=== PATIENT | female | born 1995 | race Caucasian/White ===

== ENCOUNTER 2019-06-16 23:03 | Emergency (ER) | payer SELFPAY ==
[~2019-06-16] VITALS: Ht 157.5 cm; Wt 79.4 kg
[2019-06-16 23:08] VITALS: BP 119/78
--- NOTE | 2019-06-16 23:11 | NUR ---
PT AMBULATED TO BED 9. PROVIDING URINE.
--- NOTE | 2019-06-16 23:16 | NUR ---
Dr. Estrada examining patient.
[2019-06-16] MEDS ORDERED: SULFAMETH/TRIMETH DS 800/160MG 1 TAB PO ONE (23:20)
[2019-06-16] MEDS ORDERED: IBUPROFEN 800 MG TAB PO ONE (23:20)
[2019-06-16] MEDS ORDERED: PHENAZOPYRIDINE 100 MG TAB PO ONE (23:20)
--- NOTE | 2019-06-16 23:21 | NUR ---
24/F PRESENTS TO ED, C/O BURNING WITH URINATION AND SUPRAPUBIC PAIN, X1 DAY INTERMITTENTLY. PT DENIES FEVER, N/V/D, CONSTIPATION. PT AWAKE AND ALERT, SKIN NORMAL WARM AND DRY, RR EVEN AND UNLABORED. HX CHOLELITHIASIS
[2019-06-16 23:47] VITALS: BP 119/78
--- NOTE | 2019-06-16 23:47 | NUR ---
Patient discharged with v/s stable. Written and verbal after care instructions given and explained. Patient alert, oriented and verbalized understanding of instructions. Ambulatory with to car. All questions addressed prior to discharge. ID band removed. Patient advised to follow up with PMD. Rx of motrin, pyridium, and bactrim was given. Patient educated on indication of medication including possible reaction and side effects. Opportunity to ask questions provided and answered.
== END 2019-06-16 23:47 | disposition home or self-care (01) ==
LOC: MED 23:03
DX: N30.91 Cystitis, unspecified with hematuria (principal)
CPT/HCPCS: 81002; 81025; 99284

== ENCOUNTER 2021-03-23 11:11 | Emergency (ER) | payer SELFPAY ==
[~2021-03-23] VITALS: Ht 157.5 cm; Wt 79.4 kg
--- NOTE | 2021-03-23 11:14 | NUR ---
Patient ambulated to bed 6. RN evaluating the patient at bedside.
[2021-03-23 11:17] VITALS: BP 151/70
--- NOTE | 2021-03-23 11:18 | NUR ---
Patient ambulated to restroom for urine sample.
--- NOTE | 2021-03-23 11:27 | NUR ---
Dr. Santos is evaluating patient at bedside.
[2021-03-23] MEDS ORDERED: ONDANSETRON 4 MG ODT PO ONE (11:30)
--- NOTE | 2021-03-23 11:35 | NUR ---
26 y/o F brought in from home with c/c abdominal pain + N/V x 1 hour. Patient reports acute onset of abdominal pain that she reports is 8/10, burning/aching/constant, radiating to her middle back. Patient also reports associated weakness. States history of gallstones x 3 years ago and symptoms feel similar. Patient denies any recent Covid vaccinations; reports taking Tylenol 500mg without relief. Patient denies diarrhea, constipation, dizziness, SOB, chest pain, cough, fever/chills. Pt placed into a gown. Bed locked in lowest position, side rails x 1, call light in reach. PMH: Gallstones Meds/Sx: Denies NKA
--- NOTE | 2021-03-23 11:35 | NUR ---
Lab at bedside.
[2021-03-23 11:47] LABS: BASOPHILS % (AUTO) 0.6 % (0.0-2.0); EOSINOPHILS # (AUTO) 0.1 K/uL (0-0.4); EOSINOPHILS % (AUTO) 2.2 % (0.0-4.0); HEMOGLOBIN 12.3 g/dL (12.0-16.0); LYMPHOCYTES # (AUTO) 1.8 K/uL (2.5-16.5); LYMPHOCYTES % (AUTO) 26.9 % (20.5-51.1); MEAN CORPUSCULAR HEMOGLOBIN 29 pg (27-31); MEAN CORPUSCULAR HGB CONC 33 g/dL (33-37); MEAN CORPUSCULAR VOLUME 85.6 fL (80-94); MONOCYTES # (AUTO) 0.4 K/uL (0.8-1.0); MONOCYTES % (AUTO) 5.8 % (1.7-9.3); NEUTROPHILS # (AUTO) 4.3 K/uL (1.8-7.7); NEUTROPHILS % (AUTO) 64.5 % (42.2-75.2); PLATELET COUNT (AUTO) 297 K/uL (140-450); RED BLOOD CELL COUNT(AUTO) 4.32 MIL/uL (4.20-5.40); RED CELL DISTRIBUTION WIDTH 13.4 % (11.6-13.7); WHITE BLOOD COUNT (AUTO) 6.6 K/uL (4.8-10.8)
--- NOTE | 2021-03-23 11:54 | NUR ---
Patient reports positive relief; no nausea at this time. Patient requesting pain medication. Dr. Santos made aware.
[2021-03-23] MEDS ORDERED: KETOROLAC 30 MG/ML VIAL IM ONE (12:00)
[2021-03-23] MEDS ORDERED: MORPHINE SULFATE 2 MG/ML SYR IM ONE (12:00)
[2021-03-23 12:04] LABS: ANION GAP 11.9 (8-16); CARBON DIOXIDE 29.5 mmol/L (21-32); CREATININE 0.7 mg/dL (0.6-1.3); POTASSIUM 3.4 mmol/L (3.5-5.1); TOTAL BILIRUBIN 0.4 mg/dL (0.0-1.0)
--- NOTE | 2021-03-23 12:19 | NUR ---
DR FERRARO AT BEDSIDE RE-EVALUATING PATIENT
[2021-03-23] MEDS ORDERED: MAG355OR2 PO (12:24)
[2021-03-23] MEDS ORDERED: ONDA-24 PO (12:24)
[2021-03-23] MEDS ORDERED: FAMO-90 PO (12:24)
--- NOTE | 2021-03-23 12:36 | NUR ---
Patient reports no pain at this time after medication; 0/10. Denies any nausea. Patient resting comfortably in no distress. Respirations even/unlabored. Bed locked in lowest position, side rails x 1, call light in reach.
[2021-03-23 12:47] VITALS: BP 151/70
--- NOTE | 2021-03-23 12:47 | NUR ---
Patient discharged with v/s stable. Written and verbal after care instructions given and explained. Patient alert, oriented and verbalized understanding of instructions. Ambulatory with steady gait. All questions addressed prior to discharge. ID band removed. Patient advised to follow up with PMD. Rx of Famotidine, Mag Hydrox/Al Hydrox/Simeth, Ondansetron given. Patient educated on indication of medication including possible reaction and side effects. Opportunity to ask questions provided and answered.
== END 2021-03-23 12:47 | disposition home or self-care (01) ==
LOC: MED 11:11
DX: K80.50 Calculus of bile duct without cholangitis or cholecystitis without obstruction (principal); R11.10 Vomiting, unspecified; F12.90 Cannabis use, unspecified, uncomplicated; Z79.899 Other long term (current) drug therapy
CPT/HCPCS: 36415; 80053; 81002; 81025; 83690; 85025; 96372; 99284; J1885; J2270; Q0162